=== PATIENT | male | born 1970 | race Caucasian/White ===

== ENCOUNTER → 2019-01-07 11:30 | Outpatient (CLI) | payer BC, SELFPAY ==
--- NOTE | 2019-01-07 11:35 | XR_ITS ---
XR knee LT 3V HISTORY: ITS.REASON: LT MEDIAL KNEE PAIN ORDERING PHYSICIAN: Kyleigh Barber PATIENT AGE: 48 years COMPARISON: None FINDINGS: No fracture or dislocation. No lytic or blastic change. Normal mineralization. No significant arthritic changes evident. No other significant findings IMPRESSION: Negative Knee
== END ==
PROVIDERS: PCP Family Medicine; Visit Provider Family Medicine
DX: M25.562 Pain in left knee (principal)
CPT/HCPCS: 73562

== ENCOUNTER → 2019-02-16 14:07 | Outpatient (CLI) | payer BC, SELFPAY ==
--- NOTE | 2019-02-16 14:11 | XR_ITS ---
XR ankle wt bearing LT min 3V HISTORY: Follow-up fracture ITS.REASON: fracture follow up ORDERING PHYSICIAN: Caroline Lubin DPM PATIENT AGE: 48 years Comparison: 01/27/2019 FINDINGS: Healing nondisplaced transverse fracture involves the lateral malleolus. Fracture line is once again noted but appear somewhat less apparent. The soft tissue swelling has improved. IMPRESSION: Healing nondisplaced lateral malleolus fracture
== END ==
PROVIDERS: PCP Internal Medicine; Visit Provider Podiatrist
DX: S82.65XD Nondisplaced fracture of lateral malleolus of left fibula, subsequent encounter for closed fracture with routine healing (principal); M25.472 Effusion, left ankle; M25.572 Pain in left ankle and joints of left foot; T14.8XXA Other injury of unspecified body region, initial encounter
CPT/HCPCS: 73610

== ENCOUNTER → 2019-03-02 10:46 | Outpatient (CLI) | payer BC, SELFPAY ==
--- NOTE | 2019-03-02 10:59 | XR_ITS ---
XR 02/16/2019 wt bearing LT min 3V HISTORY: Follow-up fracture ITS.REASON: fracture/dislocation f/u ORDERING PHYSICIAN: Caroline Lubin DPM PATIENT AGE: 48 years Comparison: FINDINGS: The nondisplaced fracture of the lateral malleolus is again noted and healing is almost complete this time. Mild diffuse soft tissue swelling of the ankle remains especially laterally. Medial malleolus is intact. Ankle mortise appears normal. IMPRESSION: Almost completely healed fracture lateral malleolus.
== END ==
PROVIDERS: PCP Family Medicine; Visit Provider Podiatrist
DX: S82.65XD Nondisplaced fracture of lateral malleolus of left fibula, subsequent encounter for closed fracture with routine healing (principal); T14.8XXA Other injury of unspecified body region, initial encounter
CPT/HCPCS: 73610

== ENCOUNTER → 2019-03-18 10:01 | Outpatient (CLI) | payer BC, SELFPAY ==
--- NOTE | 2019-03-18 10:06 | XR_ITS ---
XR ankle wt bearing LT min 3V HISTORY: Follow-up fracture ITS.REASON: fracture f/u ORDERING PHYSICIAN: Caroline Lubin DPM PATIENT AGE: 48 years Comparison: 03/02/2019 FINDINGS: Nondisplaced distal fibular fracture once again noted. Fracture line still visible laterally but less apparent medially . Low bone density is present involving the distal aspect of the fibula. IMPRESSION: Healing nondisplaced distal fibular fracture
== END ==
PROVIDERS: PCP Internal Medicine; Visit Provider Podiatrist
DX: S82.65XD Nondisplaced fracture of lateral malleolus of left fibula, subsequent encounter for closed fracture with routine healing (principal)
CPT/HCPCS: 73610

== ENCOUNTER → 2019-04-14 10:20 | Outpatient (CLI) | payer BC, SELFPAY ==
--- NOTE | 2019-04-14 10:24 | XR_ITS ---
XR ankle wt bearing LT min 3V HISTORY: Follow-up fracture ITS.REASON: fracture follow up ORDERING PHYSICIAN: Caroline Lubin DPM PATIENT AGE: 48 years Comparison: 03/18/2019 FINDINGS: There is generalized osteopenia. Healing nondisplaced fracture involves the distal aspect of the fibula. Fracture line is less apparent than previously noted remains good alignment. There are some hypertrophic changes of the anterior aspect of the distal tibia. IMPRESSION: Healing nondisplaced fracture distal fibula with good alignment
== END ==
PROVIDERS: PCP Internal Medicine; Visit Provider Podiatrist
DX: T14.8XXA Other injury of unspecified body region, initial encounter (principal)
CPT/HCPCS: 73610

== ENCOUNTER → 2019-05-04 10:21 | Outpatient (CLI) | payer BC, SELFPAY ==
--- NOTE | 2019-05-04 10:27 | XR_ITS ---
XR ankle wt bearing LT min 3V HISTORY: ITS.REASON: pain ORDERING PHYSICIAN: Caroline Lubin DPM PATIENT AGE: 48 years Comparison: 01/27/2019. FINDINGS: There is no change in the healed distal fibular fracture. There is mild generalized osteopenia. There is no acute fractures. The remainder of the exam is stable.. IMPRESSION: Osteopenia. No acute fracture.
== END ==
PROVIDERS: PCP Internal Medicine; Visit Provider Podiatrist
DX: S82.65XD Nondisplaced fracture of lateral malleolus of left fibula, subsequent encounter for closed fracture with routine healing (principal); T14.8XXA Other injury of unspecified body region, initial encounter
CPT/HCPCS: 73610

== ENCOUNTER → 2019-05-14 08:35 | Outpatient (CLI) | payer BC, SELFPAY ==
--- NOTE | 2019-05-14 08:37 | MR_ITS ---
MR ankle LT wo/w con CLINICAL INDICATION: Left ankle pain, posterior tibial tendinitis, deltoid ligament sprain, close nondisplaced fracture of the lateral malleolus ITS.REASON: left ankle pain ORDERING PHYSICIAN: Caroline Lubin DPM PATIENT AGE: 48 years Comparison: 05/04/2019 TECHNIQUE: Routine multiplanar multiecho sequences are performed without and with gadolinium enhancement. FINDINGS: There is diffuse heterogeneous mixed signal intensity of the distal tibia, talus, navicular, and cuneiforms with a lesser extent involvement of the anterior aspect of the calcaneus and cuboid with mostly mixed areas of decreased T1 and increased T2 signal consistent with yellow marrow replacement. There is some bone marrow edema however of the talar dome and the subarticular surface of the distal tibia with at least one small curvilinear area of decreased T1 and T2 signal involving the subcortical region of the talar dome and could be related to developing osteochondrosis. There is a persistent transverse fracture line noted involving the distal fibula. There is slight increased T2 signal with some edema of the distal aspect of the posterior tibialis tendon with a small amount of fluid surrounding the tendon at this region consistent with an area of tendinopathy/tendinosis/tendinitis. A complete tear is not felt to be present. Partial tear is an additional consideration. The FHD and FHL tendons and Achilles tendon as well as the anterior flexor tendons have an unremarkable appearance. There is flattening of the peroneal brevis tendon at the retromandibular groove with a partial split tear in the peroneal brevis best seen on axial T1 fat sat pre enhanced image series 12 #12. There is also thinning of the peroneal longus tendon inferiorly with some increased T2 signal suggesting tendinopathy/tendinosis. The anterior and posterior tibiofibular ligaments as well as the anterior and posterior talofibular ligaments appear intact. The spring ligament also appears intact. There is some sparsity of the fibers of the deltoid ligament which could be related to partial tear. A complete tear however is not felt to be present as there are some ligament fibers noted. There is generalized soft tissue edema about the ankle. IMPRESSION: 1. Mild bone marrow edema of the distal tibia and talar dome with a faint curvilinear area of decreased signal at the medial aspect of the talar dome suggesting a very small area of osteochondrosis with generalized yellow marrow replacement of the bones of the ankle and midfoot 2. Nondisplaced transverse fracture at the lateral malleolus. 3. Partial split tear of the peroneal brevis at the retromalleolar groove 4. Tendinopathy/tendinitis of the posterior tibial tendon. Partial tear is an additional consideration. 5. Sprain versus partial tear of the deltoid ligament
--- NOTE | 2019-05-14 08:38 | XR_ITS ---
XR orbit bilateral min 4V HISTORY: History of metallic foreign body in the eyes. Clearance for MRI needed ITS.REASON: RULE OUT METAL FOREIGN BODY FOR MRI ORDERING PHYSICIAN: Caroline Lubin DPM PATIENT AGE: 48 years Comparison: None TECHNIQUE: AP views are obtained of the orbits with the patient looking up and down FINDINGS: No radio opaque foreign bodies evident. IMPRESSION: No radio opaque orbital foreign body identified
== END ==
PROVIDERS: PCP Internal Medicine; Visit Provider Podiatrist
DX: M25.472 Effusion, left ankle (principal); M25.572 Pain in left ankle and joints of left foot; M76.822 Posterior tibial tendinitis, left leg; S93.422A Sprain of deltoid ligament of left ankle, initial encounter; H05.53 Retained (old) foreign body following penetrating wound of bilateral orbits
CPT/HCPCS: 70200; 73723; A9576

== ENCOUNTER 2019-05-18 15:00 | Outpatient (RCR) | payer BC, SELFPAY ==
--- NOTE | 2019-03-10 08:47 | HMH.PTOPEV ---
PT Outpatient Evaluation Rehab PT Outpatient Evaluation Start: 03/10/19 08:22 Freq: Status: Active Protocol: Document 03/10/19 08:26 LISA (Rec: 03/10/19 08:47 [email or web address] [id number]) Electronically Signed By Dominguez Jackson PT 03/10/19 08:26 Outpatient Therapy Subjective History Subjective History Pt reports to PT s/p L ankle fibula fracture. Pt reports he was stepping off of tractor on 01/27/19. Pt reports he rolled ankle and felt it pop . Pt reports he was put in CAM boot and was NWB until . Pt now is to increase to WBAT in boot on crutches. Progress to WBAT in corset ankle brace. Chief Complaint Pain,Spasms,Stiff,Swelling Symptom Type Ache,Throb,Burning Symptoms Relieved By Rest/Positioning,Ice Symptoms Aggravated By Standing,Physical Activity, Walking Prior Functional Limitations None Current Functional Limitations Standing,Squatting,Recreation Activity,Walking,Stairs Symptom Description Constant but Variable Level of pain today (0-10) 1 Pain scale - at its best (0-10) 1 Pain scale - at its worst (0-10) 3 Ankle/Foot Eval Gait Observation General Gait Pattern Observation Antalgic Gait Assistive Device Ambulation Assistive Device Axillary Crutches Palpation Tenderness left Ankle/Foot Palpation Findings Tenderness Ankle/Foot Palpation Overall Comment TTP 3/4 Lateral maleolus area ROM Ankle/Foot Dorsiflexion w/Knee Extended 10 from neutral Active Range Motion (degrees) Ankle/Foot Plantar Flexion Active Range 30 of Motion (degrees) Ankle/Foot Eversion Active Range of 5 Motion (degrees) Ankle/Foot Inversion Active Range of 15 Motion (degrees) Ankle/Foot ROM Limitations Soft Tissue Tightness,Pain MMT Ankle Dorsiflexion Strength Grade 5 Normal Ankle Plantarflexion Strength Grade 4- Good- Foot Eversion Strength Grade 4- Good- Foot Inversion Strength Grade 4- Good- Special Tests Ankle Eversion Test Positive Left Talar Tilt Test Positive Left Ankle Inversion (supination) Test Positive Left Outpatient Therapy Assessment Impairments Problems/Impairmments Palpation Tenderness,Impaired Range of Motion,Impaired Strength,Impaired Endurance, Impaired Gait Pattern,Impaired Walking,Impaired Standing, Impaired Shower/Bat
== END 2019-05-18 15:05 | disposition home or self-care (01) ==
LOC: PT 15:00
PROVIDERS: Visit Provider Podiatrist
DX: S82.62XA Displaced fracture of lateral malleolus of left fibula, initial encounter for closed fracture (principal)
CPT/HCPCS: 97010; 97014; 97016; 97110; 97112; 97140; 97163; 97760; G0283

== ENCOUNTER → 2019-05-20 10:01 | Outpatient (CLI) | payer BC, SELFPAY ==
[2019-05-20 10:24] LABS: Basophils % 0.4 % (0.1-2.0); Eosinophils # 0.1 K/mm3 (0.0-0.4); Eosinophils % 2.1 % (0.1-12.0); Hematocrit 50.7 % (42.0-52.0); Hemoglobin 16.3 g/dL (14.1-18.0); Lymphocytes # 1.9 K/mm3 (0.7-4.5); Lymphocytes % 31.2 % (10-50); Mean Corpuscular HGB Conc 32.2 g/dL (31.8-35.4); Mean Corpuscular Hemoglobin 30.2 pg (27.0-31.2); Mean Corpuscular Volume 93.7 fl (80-94); Mean Platelet Volume 7.2 fl (7.4-10.4); Monocytes # 0.2 K/mm3 (0.1-1.0); Monocytes % 3.6 % (1.7-9.3); Neutrophils # 3.9 K/mm3 (1.8-7.8); Neutrophils % 62.7 % (37.0-80.0); Platelet Count 239 K/mm3 (142-424); Red Blood Count 5.41 M/mm3 (4.60-6.20); White Blood Count 6.2 K/mm3 (4.8-10.8)
--- NOTE | 2019-05-20 10:30 | XR_ITS ---
XR chest 2V HISTORY: ITS.REASON: COUGH ORDERING PHYSICIAN: Caroline Lubin DPM PATIENT AGE: 48 years COMPARISON: None FINDINGS: The cardiomediastinal silhouette and pulmonary vascularity are within normal limits. The lungs are clear without infiltrates, suspicious nodules, or pleural effusions. No acute bony abnormalities. IMPRESSION: Negative chest, no acute finding
[2019-05-20 11:36] LABS: Anion Gap 12.6 mEq/L (5-15); Blood Urea Nitrogen 17 mg/dL (7-18); Calcium 9.6 mg/dL (8.5-10.1); Carbon Dioxide 30 mmol/L (21.0-32.0); Chloride 104 mmol/L (98-107); Creatinine,Serum 1.02 mg/dL (0.70-1.30); Estimated Glomerular Filt Rate 78 ml/min (>60); GFR (African American) 95 ML/MIN (>60); Glucose 151 mg/dL (74-106); Potassium 4.6 mmoL/L (3.5-5.1); Sodium 142 mmol/L (136-145)
== END ==
PROVIDERS: Visit Provider Podiatrist
DX: Z01.818 Encounter for other preprocedural examination (principal)
CPT/HCPCS: 36415; 71046; 80048; 85025; 93005

== ENCOUNTER → 2019-07-02 09:52 | Outpatient (CLI) | payer BC, SELFPAY ==
--- NOTE | 2019-07-02 09:57 | XR_ITS ---
PROCEDURE: XR ANKLE WT BEARING LT MIN 3V CLINICAL INDICATION: post-op Follow-up fracture/ORIF COMPARISON: ANKCMLT XR ankle LT min 3V from 01/27/2019 XR ANKLE LT 2V from 05/27/2019 FINDINGS: There is a bone plate overlying the distal fibula stabilizing the transverse distal fibular fracture. Fracture line is barely visible. There is diffuse osteopenia of the distal tibia and fibula and the talar dome with sub chondral lucency of the talar dome. Diffuse osteopenia of the midfoot also noted. IMPRESSION: Good alignment status post ORIF distal fibula with diffuse osteopenia Dictated by: Jonh Calderón MD 07/02/2019 13:12 Electronically signed by Jonh Calderón MD in [place] 07/02/2019 13:12
== END ==
PROVIDERS: PCP Internal Medicine; Visit Provider Podiatrist
DX: S82.62XD Displaced fracture of lateral malleolus of left fibula, subsequent encounter for closed fracture with routine healing (principal); Z98.890 Other specified postprocedural states
CPT/HCPCS: 73610

== ENCOUNTER 2021-01-27 09:37 | Emergency (ER) | payer BC, SELFPAY ==
[2021-01-27 09:40] VITALS: BP 136/85; PULSE 122; RESP 21; TEMP 37.6; O2SAT 96; BMI 32.5
--- NOTE | 2021-01-27 10:02 | HMH.EDUTC ---
[facility] [place] Disposition Clinical Impression: Viral syndrome Disposition: Home, Self-Care Condition on Discharge: Good Instructions: Diarrhea, DI for Fever (Symptom) -- Adult, Nausea and Vomiting-Adult, Ondansetron Additional Instructions: *Monitor Temp, Over the counter Motrin or Tylenol as directed/as needed Tylenol every 4 hours and Motrin every 6 hours (as long as your family doctor has told you that you can take it) for fever or pain. and straight to ER if unable to lower temp less than 101.0 after medication given *Warm salt water gargles may help to soothe the throat *Throat Lozenges *Warm fluids like tea with honey may help to soothe the throat *Sleep elevated *Humidifier/Vaporizer Drink extra fluids with and between meals. If you have difficulty drinking, try very small amounts of water or suck on ice chips. ? Avoid fruit juices, as these do not replace minerals and can actually increase diarrhea. ? Children and adults can use sports drinks to replenish electrolytes. Younger children and infants should use products formulated for children, like oral rehydration solutions. ? Eat food in small amounts and let your stomach recover. ? Get lots of rest. You may feel tired or weak. ? No greasy or fried foods for the next 24-48 hours BRAT diet Bananas Rice Apples and [place] ? Make sure to drink plenty of liquids ? Return if needed ? Straight to ER if any life threatening symptoms ? Zofran as prescribed ? You was given an outpatient order for diarrhea panel, please collect specimen and bring back to outpatient lab then call back to the [facility] or follow up with family doctor for results ? Follow up with family doctor in the next 48-72 hours if no improvement or any worsening of symptoms Follow up IMMEDIATELY for new or worsening symptoms or no Noticeable improvement over the next 48-72 hours. 911 for difficulty breathing or swallowing You were tested for today for COVID19 your test result should be back in the next 24-48 hours, you may call to the [facility] to see if your test results are back in the next 48 hours [phone] [facility] hours are 9am-9pm You was given a handout with instructions for Self Quarantine and Self isolation for while you wait on test results and what to do if they are positive If you are positive the Health Dept will be contacting you also Prescriptions: Ondansetron [Zofran 4mg ODT] 4 mg PO TIDP PRN #10 tab PRN Reason: Vomiting Transmission Status: Received by [id number] Referrals: Rah Florence [Primary Care Provider] - Forms: Work/School Release Time of Disposition: 10:39 Medical Decision Making - Todd Inquiry Pt receiving controlled substance: No Todd was queried for this patient: No Vital Signs: 01/27/21 09:40 01/27/21 10:05 01/27/21 10:35 Temperature 99.6 F 101.0 F H 99.8 F H Temperature Source Oral Oral Oral Pulse Rate Pulse Rate [Right Brachial] 122 H 115 H Respiratory Rate 21 Blood Pressure Blood Pressure [Right Arm] 136/85 Blood Pressure Mean [Right Arm] 102 Blood Pressure Source [Right Arm] Automatic Cuff Blood Pressure Position [Right Arm] Sitting 02 Sat by Pulse Oximetry 96 Oxygen Delivery Method Room Air 01/27/21 10:42 Temperature 99.8 F H Temperature Source Pulse Rate 115 H Pulse Rate [Right Brachial] Respiratory Rate 21 Blood Pressure 00/00 L Blood Pressure [Right Arm] Blood Pressure Mean [Right Arm] Blood Pressure Source [Right Arm] Blood Pressure Position [Right Arm] 02 Sat by Pulse Oximetry Oxygen Delivery Method - Lab Data Lab Results 01/27/21 10:01: Influenza Type A Ag Negative, Influenza Type B Ag Negative Orders (Tests/Meds): ED MEDICATIONS Discontinued Medications Generic Name Dose Route Start Last Admin Trade Name Freq PRN Reason Stop Dose Admin Ibuprofen 600 mg 01/27/21 10:06 01/27/21 10:15 Ibuprofen 600 Mg Tablet PO 01/27/21 10:07 600 mg ONCE ONE Administration Ondansetron HCl 4 mg
[2021-01-27 10:05] VITALS: TEMP 38.3
[2021-01-27 10:16] LABS: UTC Influenza A Antigen Negative (Negative); UTC Influenza B Antigen Negative (Negative)
[2021-01-27 10:35] VITALS: PULSE 115; TEMP 37.7
[2021-01-27 10:42] VITALS: BP 00/00; PULSE 115; RESP 21; TEMP 37.7; O2SAT 96
== END 2021-01-27 10:46 | disposition home or self-care (01) ==
PROVIDERS: Emergency Provider Nurse Practitioner; PCP Internal Medicine
DX: Z20.822 Contact with and (suspected) exposure to COVID-19 (principal); B34.9 Viral infection, unspecified
CPT/HCPCS: 87804; 99202; G0463; U0003

== ENCOUNTER → 2021-01-28 14:10 | Outpatient (CLI) | payer BC, SELFPAY ==
[2021-01-28 14:13] LABS: Adenovirus F 40/41, stool Not Detected (NotDetected); Astrovirus Not Detected (NotDetected); Campylobacter Not Detected (NotDetected); Clostridium Difficile A/B, PCR Not Detected (NotDetected); Cryptosporidium Not Detected (NotDetected); Cyclospora Cayetanesis Not Detected (NotDetected); Entamoeba histolytica Not Detected (NotDetected); Enteroaggregative E coli Not Detected (NotDetected); Enteropathogenic E coli Not Detected (NotDetected); Enterotoxigenic E coli Not Detected (NotDetected); Giardia lamblia Not Detected (NotDetected); Plesimonas Shigalloides, PCR Not Detected (NotDetected); Rotavirus A Not Detected (NotDetected); Salmonella, PCR Not Detected (NotDetected); Sapovirus Not Detected (NotDetected); Shiga-like toxin E coli Not Detected (NotDetected); Shigella Enterovasive E coli Not Detected (NotDetected); Vibrio Cholerae Not Detected (NotDetected); Vibrio, PCR Not Detected (NotDetected); Yersinia Entercolitica, PCR Not Detected (NotDetected)
[2021-01-28 16:41] LABS: Norovirus Detected (NotDetected)
== END ==
PROVIDERS: Visit Provider Nurse Practitioner
DX: R19.7 Diarrhea, unspecified (principal); A08.11 Acute gastroenteropathy due to Norwalk agent
CPT/HCPCS: 87507

== ENCOUNTER 2025-04-14 15:06 | Outpatient (CLI) | payer BC, SELFPAY ==
--- NOTE | 2025-04-14 15:08 | XR_ITS ---
PROCEDURE INFORMATION: Exam: XR Right Knee Exam date and time: 04/14/2025 3:11 PM Age: 54 years old Clinical indication: Pain; Knee; Right; Additional info: Hit by calf, right knee pain and swelling TECHNIQUE: Imaging protocol: Radiologic exam of the right knee. Views: 3 views. COMPARISON: No relevant prior studies available. FINDINGS: Bones/joints: No displaced fracture. Mild osteoarthrosis of medial compartment. Early osteoarthrosis of patellofemoral compartment. No dislocation. Moderate to large joint effusion. Soft tissues: Unremarkable. IMPRESSION: No displaced fracture. Joint effusion. Suggest CT to evaluate for occult fracture.
--- OUTSIDE RECORDS SUMMARY | 2025-04-14 15:08 | XMS_ITS | Clinical Summary ---
Author Organization [facility] Address [address] [place] [id number] Phone [email or web address] Care Team Providers Care Passenger Agent Name Role Phone Rah Florence Primary Care Provider Unavailabl e Allergies Active Allergy Reactions Criticality Noted Date Comments Penicillins 04/08/2019 Medications ondansetron ODT (ZOFRAN-ODT) 4 MG dispersible tablet Take 4 mg by mouth every 8 (eight) hours if needed for nausea or vomiting. Active Active Problems No known active problems Social History Tobacco Use Types Packs/Day Years Used Date Smoking Tobacco: Former Cigarettes Smokeless Tobacco: Never Intimate Partner Violence Answer Date R ecorded Insults You Not on file 01/24/2021 Threatens You Not on file 01/24/2021 Screams at You Not on file 01/24/2021 Physically Hurt Not on file 01/24/2021 Intimate Partner Violence Score Not on file 01/24/2021 Stress Answer Date Recorded Stress in your Life Not on file 08/17/2024 Dealing with Stress 3 08/17/2024 Sex and Gender Information Value Date Recorded Sex Assigned at Not on file Legal Sex Male 8:08 AM CDT Gender Identity Not on file Sexual Orientation Not on file Last Filed Vital Signs Vital Sign Reading Time Taken Comments Blood Pressure 152/92 04/08/2019 12:10 PM EDT Pulse 102 04/08/2019 12:10 PM EDT Temperature - - Respiratory Rate 14 04/08/2019 12:10 PM EDT Oxygen Saturation 98% 04/08/2019 12:10 PM EDT Inhaled Oxygen Concentration - - Weight 107 kg (235 lb) 08/23/2017 3:34 PM [facility] Height 182.9 cm (6') 08/23/2017 3:34 PM [facility] Body Mass Index 31.87 08/23/2017 3:34 PM [facility] Plan of Treatment Health Maintenance Due Date Last Done Comments Dental Cleaning/Exam 1971 HIV Screening 1971 Hepatitis C Screening 1971 Annual Preventive Exam 1989 Hep B Infection Screening - Triple Screen 1989 Hepatitis B Immunization (1 of 3 - 19+ 3-dose series) 1990 Tetanus Diphtheria and Pertu ssis Immunization (1 - Tdap) 1990 Colorectal Cancer Screening 2001 Zoster Immunization (1 of 2) 2021 Covid-19 Immunization (1 - 2 024-25 season) 2024 Influenza Immunization (Seas on Ended) 2025 HIB Immunization Aged Out No longer e ligible based on patient's age to complete this topic HPV Immunization Aged Out No longer e ligible based on patient's age to complete this topic Hepatitis A Immunization Aged Out No longer eligible based on patient's age to complete this topic Pneumococcal: Ped (0 to 5 Yr s) and At-Risk Member (6 to 64 Yrs) Aged Out No longer e ligible based on patient's age to complete this topic Polio Immunization Aged Out No longer eligible based on patient's age to complete this topic Insurance [facility] Address: [id number] [place] [address] Care Teams Passenger Agent Relationship Specialty [place] [address] PCP - General Curb Worker 09/03/19
== END 2025-04-14 23:59 | disposition home or self-care (01) ==
LOC: RAD 15:07
PROVIDERS: PCP Internal Medicine; Visit Provider Internal Medicine
DX: M25.561 Pain in right knee (principal); M25.461 Effusion, right knee; W55.22XA Struck by cow, initial encounter
CPT/HCPCS: 73562